=== PATIENT | male | born 1980 | race Caucasian/White ===

== ENCOUNTER → 2017-03-01 | Outpatient (REF) | payer OTHER, BC | LOC: M SMT 12:59 | PROVIDERS: ATTEND Nurse Practitioner Family | DX: R31.9 Hematuria, unspecified (principal) ==

== ENCOUNTER → 2017-03-09 | Outpatient (CLI) | payer BC ==
[~2017-03-09] MED LIST: ISOVUE-370 76% 100ML VIAL (Q9967) As Ordered ONE
--- NOTE | 2017-03-10 04:13 | REP ---
Clinical: Hematuria. Technique: Axial precontrast, contrast enhanced, and delayed images of the abdomen and pelvis using 100 ml Isovue 370 intravenous contrast material with coronal and sagittal re-formations. Comparison: None. Findings: Evaluation of the urinary tract system demonstrates 2.5 mm right and 5 mm left nonobstructing intrarenal calculi. No hydroureteronephrosis, perinephric stranding, or obstructing ureteral calculi are identified. The collecting system is normal on delayed imaging including bilateral ureters and bladder. The liver, spleen, pancreas, gallbladder, bilateral adrenal glands are normal. The enteric system is without obstruction or acute inflammatory process. Normal terminal ileum and appendix identified in the right lower quadrant. Few scattered sigmoid diverticula noted without acute diverticulitis. Pelvis demonstrates normal bladder and age appropriate prostate/seminal vesicles. No pelvic fluid or ascites. No adenopathy. Vasculature normal. Surrounding musculoskeletal structures are intact. Impression: Solitary bilateral nonobstructing nephroliths. Signed by Luis Valente MD 03/10/2017 04:05 A
== END ==
LOC: M RAD 14:55
PROVIDERS: ATTEND Nurse Practitioner Family
DX: R31.9 Hematuria, unspecified (principal)
CPT/HCPCS: 74178; Q9967

== ENCOUNTER → 2017-04-18 | Outpatient (CLI) | payer BC ==
[~2017-04-18] MED LIST changes: -ISOVUE-370 76% 100ML VIAL (Q9967) As Ordered ONE; +LOSA50TA20 PO
--- NOTE | 2017-04-18 11:54 | REP ---
KUB, TWO VIEWS: HISTORY: Kidney stones. A small amount of air is present in the small and large intestine. There are no air fluid levels with dilated loops of intestine. There is no pneumoperitoneum. A calcification is present overlying the left kidney consistent with nephrolithiasis. There is no definite right nephrolithiasis. IMPRESSION: 1. Nonspecific bowel gas pattern. 2. Left nephrolithiasis. Signed by Clif Rodríguez MD 04/18/2017 12:06 P
== END ==
LOC: M SMT 11:23
PROVIDERS: ATTEND Urology
DX: R30.0 Dysuria (principal); N20.0 Calculus of kidney

== ENCOUNTER → 2017-05-15 | Outpatient (CLI) | payer BC ==
[2017-05-15 19:30] LABS: ANION GAP 9 MEQ/L (8-16); BLOOD UREA NITROGEN 11 MG/DL (7-18); CALCIUM LEVEL 8.8 MG/DL (8.5-10.1); CARBON DIOXIDE LEVEL 26 MEQ/L (21-32); CHLORIDE LEVEL 107 MEQ/L (98-107); CREATININE FOR GFR 1.03 MG/DL (0.70-1.30); GLOMERULAR FILTRATION RATE > 60.0 (>60); GLUCOSE, FASTING 104 MG/DL (70-105); POTASSIUM SERUM 4.1 MEQ/L (3.5-5.1); SODIUM LEVEL 142 MEQ/L (136-145)
[2017-05-15 21:00] LABS: MEAN CORPUSCULAR HEMOGLOBIN 31.1 pg (27.0-33.0); MEAN CORPUSCULAR HGB CONC 33.6 g/dl (32.0-36.5); MEAN CORPUSCULAR VOLUME 92.4 fl (80.0-96.0); RED CELL DISTRIBUTION WIDTH 13.5 % (11.5-14.5)
[2017-05-15 21:01] LABS: INR 0.84
== END ==
LOC: M SMT 15:04
PROVIDERS: ATTEND Urology
DX: Z01.818 Encounter for other preprocedural examination (principal); N20.0 Calculus of kidney

== ENCOUNTER 2017-05-18 06:33 | Day surgery (SDC) | payer BC ==
[~2017-05-18] VITALS: Ht 182.9 cm; Wt 97.5 kg
[2017-05-18] MEDS ORDERED: LR 1,000 ML IV ONE (07:00)
[2017-05-18] MEDS ORDERED: LIDOCAINE 1% SDV 5 ML VIAL SQ ONE (07:30)
[2017-05-18] MEDS ORDERED: MIDAZOLAM INJ 2 MG/2 ML VIAL (J2250) As Ordered ONE (07:53)
[2017-05-18] MEDS ORDERED: fentaNYL 100 MCG/2 ML INJECTION (J3010) As Ordered ONE (07:53)
[2017-05-18] MEDS ORDERED: PROPOFOL 200 MG/20 ML VIAL As Ordered ONE (07:54)
[2017-05-18] MEDS ORDERED: LIDOCAINE 2% INJ 100 MG/5 ML SDV (FOR ANES.) As Ordered ONE (07:54)
[2017-05-18 09:39] VITALS: BP 145/89
--- NOTE | 2017-05-18 13:17 | REP ---
Supine abdomen single AP view: Comparisons are the supine abdomen of 04/18/[address] of the abdomen pelvis of 03/09/2017. There is a faintly visible calcification project over the lower pole of the left kidney, unchanged from prior studies. The remainder of the left kidney is obscured by bowel. No calcifications are identified projected over the right kidney, however the right kidney is obscured by bowel. There are pelvic calcifications, unchanged, likely phleboliths. The bowel gas pattern is normal. The skeletal structures are. Signed by Harris Lowery MD 05/18/2017 07:45 A
--- NOTE | 2017-05-20 14:29 | RO ---
DATE OF PROCEDURE: 05/18/2017 PREPROCEDURE DIAGNOSIS: Left kidney stone. POSTPROCEDURE DIAGNOSIS: Left kidney stone. PROCEDURE: Left extracorporal shockwave lithotripsy. SURGEON: Dr. Anirudh Pope. SUPERVISOR COVERING AND LINING: None. ANESTHESIA: MAC OPERATIVE INDICATIONS: This is a 37-year-old male who was found to have a 6 mm left kidney stone. It was recommended that he be brought to the operating room today for the above listed procedure. DESCRIPTION OF PROCEDURE: The patient brought to the operating room and MAC anesthesia was administered. Prophylactic antibiotics were infused. He was then placed in the supine position in preparation for left-sided extracorporal shockwave lithotripsy. Fluoroscopy and ultrasonography were utilized to monitor stone position and fragmentation throughout the procedure. Shockwaves was then delivered to the left side of the kidney stone and gated. There were no arrhythmias. The stones appear to fragment well. After 2500 shocks, the procedure was concluded. The patient was then awakened from anesthesia and transported to the regular rate and rhythm in stable condition. ESTIMATED BLOOD LOSS: 0 mL COMPLICATIONS: None. SPECIMENS: None. PLAN: The patient will followup in the clinic in a few weeks with imaging prior to assess for residual stone burden. [facility]OSPITALCandice
== END 2017-05-18 09:47 | disposition home or self-care (01) ==
LOC: M SDC 06:33
PROVIDERS: ATTEND Urology
DX: N20.0 Calculus of kidney (principal); I10 Essential (primary) hypertension; M12.9 Arthropathy, unspecified; Z88.6 Allergy status to analgesic agent; Z88.5 Allergy status to narcotic agent; Z79.899 Other long term (current) drug therapy
CPT/HCPCS: 50590; 74000; J0690; J2250; J3010

== ENCOUNTER → 2017-06-08 | Outpatient (CLI) | payer BC ==
--- NOTE | 2017-06-08 09:33 | REP ---
Clinical: Nephrolithiasis. Comparison: 05/18/2017. Findings: Evaluation for urinary tract calcifications is limited by overlying bowel gas and technique. Phleboliths noted in the pelvis remains stable. The bowel gas pattern is nonspecific. The skeletal structures are intact. Impression: Limited evaluation for urinary tract calcifications. Signed by Luis Valente MD 06/08/2017 09:24 A
== END ==
LOC: M SMT 08:51
PROVIDERS: ATTEND Urology
DX: N20.0 Calculus of kidney (principal)